=== PATIENT | female | born 1945 | race Caucasian/White ===

== ENCOUNTER 2019-05-17 10:41 | Emergency (ER) | payer MEDICARE, OTHER ==
[~2019-05-17] VITALS: Ht 170.2 cm; Wt 105.9 kg
[2019-05-17 10:59] VITALS: BP 136/81; Ht 170.2 cm; Wt 105.9 kg
[2019-05-17] MEDS ORDERED: PROZAC40 MG PO (11:02)
[2019-05-17] MEDS ORDERED: OMEPRAZOLE20 M1 PO (11:02)
[2019-05-17 11:55] LABS: ALBUMIN 3.8 g/dL (3.4-5.0); ALKALINE PHOSPHATASE 60 U/L (46-116); ALT (SGPT) 24 U/L (10-68); CALC OSMOLALITY 279 mosm/kg (275-300); CALCIUM 8.9 mg/dL (8.5-10.1); CARBON DIOXIDE 26.5 mmol/L (21.0-32.0); CHLORIDE - SERUM 103 mmol/L (98-107); CREATININE - SERUM 0.8 mg/dL (0.6-1.3); GLUCOSE 129 mg/dL (74-106); PROTEIN - SERUM 7.3 g/dL (6.4-8.2); SODIUM 137 mmol/L (136-145); UREA NITROGEN 25 mg/dL (7-18); eGFR NON AFRICAN AMERICAN 75 mL/min (90-120)
[2019-05-17 11:56] LABS: BASOPHILS 0.1 % (0-2); EOSINOPHILS 0.1 % (0-7); HEMATOCRIT 44.6 % (36.0-48.0); HEMOGLOBIN 16.1 g/dL (12-16); IMMATURE GRANULOCYTES 0.7 % (0-5); LYMPHOCYTES 13.3 % (15-50); MCH 30.4 pg (26.0-34.0); MCHC 36.1 g/dL (31.0-37.0); MCV 84.2 fL (80.0-100.0); MEAN PLATELET VOLUME 11.5 fL (7.4-10.4); MONOCYTES 2.6 % (2-11); NEUTROPHILS 83.2 % (40-80); PLATELET COUNT 193 10x3/uL (130-400); RDW 13.4 % (11.5-14.5); WBC 6.9 10x3/uL (4.8-10.8)
[2019-05-17 11:58] LABS: AMYLASE - SERUM 67 U/L (25-115); LIPASE 212 U/L (73-393); TROPONIN-I < 0.017 ng/mL (0.000-0.060)
[2019-05-17 12:07] LABS: AMORPHOUS SEDIMENT <1+ /lpf (NONE SEEN); APPEARANCE SL CLDY (CLEAR); BACTERIA FEW /hpf (NONE SEEN); BILIRUBIN NEGATIVE (NEGATIVE); COLOR YELLOW (YELLOW); EPITHELIAL CELLS 0-5 /hpf (0-5); GLUCOSE NEGATIVE (NEGATIVE); KETONE MODERATE mg/dL (NEGATIVE); MUCUS >1+ /lpf (NONE SEEN); NITRITE NEGATIVE (NEGATIVE); PROTEIN NEGATIVE (NEGATIVE); SPECIFIC GRAVITY 1.025 (1.005-1.020); UROBILINOGEN NORMAL (NORMAL); WHITE CELLS - URINE OCC /hpf (0-5)
[2019-05-17] MEDS ORDERED: ZOFRAN ODT4 MG/UDTAB PO (14:02)
== END 2019-05-17 15:16 | disposition home or self-care (01) ==
LOC: D.ER 10:41
PROVIDERS: Family Medicine
DX: R11.10 Vomiting, unspecified (principal)